=== PATIENT | female | born 1985 ===

== ENCOUNTER 2018-09-12 00:28 | Emergency (ER) | payer SELFPAY ==
[2018-09-12 00:39] VITALS: BP 119/80; PULSE 88; RESP 18; TEMP 97.9; O2SAT 100
--- NOTE | 2018-09-12 01:37 | C.PDOC ---
History Of Present Illness 33 year old female presents to the ER with a complaint of rectal pain and bleeding with bowel movement for the past 1 day. Patient has a Hx of hemorrhoids but never with pain in the past and reports now having pain to the lower back. Denies trauma, fever, fall, weakness, numbness, or incontinence. Time Seen by Provider: 09/12/18 00:51 Chief Complaint (Nursing): Back Pain History Per: Patient History/Exam Limitations: no limitations Onset/Duration Of Symptoms: Days (1) Quality Of Discomfort: Unable To Describe Previous Symptoms: None Associated Symptoms: None Recent travel outside of the [place]: No Past Medical History Reviewed: Historical Data, Nursing Documentation, Vital Signs Vital Signs: Last Vital Signs Temp 97.9 F 09/12/18 00:33 Pulse 88 09/12/18 00:33 Resp 18 09/12/18 00:33 BP 119/80 09/12/18 00:33 Pulse Ox 100 09/12/18 00:33 - Medical History PMH: Asthma (childhood) Surgical History: (as per triage) Family History: States: Unknown Family Hx - Social History Hx Tobacco Use: No Hx Alcohol Use: No Hx Substance Use: No - Immunization History Hx Tetanus Toxoid Vaccination: No Hx Influenza Vaccination: No Hx Pneumococcal Vaccination: No Review Of Systems Constitutional: Negative for: Fever, Chills Gastrointestinal: Positive for: Rectal Pain (w/ bleeding) Genitourinary: Negative for: Incontinence Musculoskeletal: Positive for: Back Pain Neurological: Negative for: Weakness, Numbness Physical Exam - Physical Exam Appears: Non-toxic Skin: Normal Color, Warm, Dry Head: Atraumatic, Normacephalic Eye(s): bilateral: Normal Inspection Gastrointestinal/Abdominal: Soft, No Tenderness Rectal: Other (Small external hemorrhoid with positive anal fissure, no perianal mass.) Back: No Vertebral Tenderness, No Paraspinal Tenderness Neurological/Psych: Oriented x3, Normal Speech, Normal Motor, Normal Sensation ED Course And Treatment O2 Sat by Pulse Oximetry: 100 (room air) Pulse Ox Interpretation: Normal Progress Note: Patient is resting comfortably in the ER in no acute distress, vitals are stable, patient educated to increase fiber, given Rx for stool softener and hemorrhoid cream, and advised to follow up with PMD. Disposition Counseled Patient/Family Regarding: Diagnosis, Need For Followup, Rx Given - Disposition Referrals: [facility] [Outside] Disposition: HOME/ ROUTINE Disposition Time: 01:36 Condition: STABLE Additional Instructions: Increase fiber in diet Take all medications as directed Return to ER if worse Prescriptions: Docusate Sodium [Colace] 100 mg PO BID #20 capsule Hydrocortisone [Anusol-HC] 25 mg RC BID #20 sup Instructions: Anal Fissure (DC) Forms: [employer] (Canadian), Work Excuse Print Language: GREENLANDIC - Clinical Impression Clinical Impression: Anal fissure - 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 - Scribe Statement The provider has reviewed the documentation as recorded by the Scribjanneth Machuca All medical record entries made by the Anette were at my direction and personally dictated by me. I have reviewed the chart and agree that the record accurately reflects my personal performance of the history, physical exam, medical decision making, and the department course for this patient. I have also personally directed, reviewed, and agree with the discharge instructions and disposition.
== END 2018-09-12 01:52 | disposition home or self-care (01) ==
LOC: C.ER 00:28
DX: K60.2 Anal fissure, unspecified (principal)